=== PATIENT | female | born 1950 | race Caucasian/White ===

== ENCOUNTER 2017-01-25 08:19 | Emergency (ER) | payer MEDICARE, OTHER | END 2017-01-25 09:26 | disposition home or self-care (01) | LOC: ER 08:19 | DX: M79.662 Pain in left lower leg (principal); E07.9 Disorder of thyroid, unspecified; Z90.710 Acquired absence of both cervix and uterus; Z79.899 Other long term (current) drug therapy; Z88.2 Allergy status to sulfonamides | CPT/HCPCS: 93971; 99283; 99283-25 ==